=== PATIENT | female | born 1990 | race African-American/Black ===

== ENCOUNTER 2021-05-29 12:40 | Emergency (ER) | payer SELFPAY ==
[~2021-05-29] VITALS: Ht 162.6 cm; Wt 70.8 kg
--- NOTE | 2021-05-29 12:40 | NUR ---
SEEN AND EXMAINED BY . NARCAN 2MG IVP GIVEN.
--- NOTE | 2021-05-29 12:40 | NUR ---
PT [id number] [address] FOUND UNRESPONSIVE W/ SHALLOW BREATHING. POSSIBLE OD ON UNKNOWN DRUG PER EMS. PT IS AAOX3, NOT IN RESPIRATORY DISTRESS, HOOKED TO DOCTOR OF CHIROPRACTIC, KEPT RESTED AND COMFORTABLE. WILL CONTINUE TO MONITOR.
[2021-05-29] MEDS ORDERED: OLANZAPINE 10 MG VIAL IM ONE ×2 (12:53→13:00)
[2021-05-29] MEDS ORDERED: NALOXONE HCL 0.4 MG/ML AMPUL IV ONE (13:00)
--- NOTE | 2021-05-29 13:16 | NUR ---
LABS DRAWN AT BEDSIDE
[2021-05-29 13:20] LABS: EOSINOPHILS % (AUTO) 0.3 % (0.0-6.0); HEMOGLOBIN 12.7 g/dL (11.5-14.8)
[2021-05-29 13:24] LABS: BASOPHILS % (AUTO) 0.4 % (0.0-2.0); HEMATOCRIT 38 % (33-45); LYMPHOCYTES # (AUTO) 1.9 K/uL (0.8-4.8); LYMPHOCYTES % (AUTO) 18.5 % (20.0-44.0); MEAN CORPUSCULAR HGB CONC 34 g/dl (31.0-36.0); MEAN CORPUSCULAR VOLUME 102 fL (82-100); MONOCYTES # (AUTO) 0.5 K/uL (0.1-1.30); MONOCYTES % (AUTO) 4.5 % (2.0-12.0); NEUTROPHILS # (AUTO) 7.9 K/uL (1.8-8.9); NEUTROPHILS % (AUTO) 76.3 % (43.0-81.0); PLATELET COUNT (AUTO) 382 K/uL (150-450); RED BLOOD CELL COUNT(AUTO) 3.66 MIL/uL (4.0-5.2); WHITE BLOOD COUNT (AUTO) 10.3 K/uL (4.3-11.0)
[2021-05-29 13:29] LABS: BILIRUBIN,URINE Negative (NEGATIVE); COLOR,URINE LIGHT YELLOW (YELLOW); LEUKOCYTE ESTERASE ,URINE Small (NEGATIVE); NITRITE, URINE Negative (NEGATIVE); PROTEIN,URINE Negative (NEGATIVE); UGLUCOSE Negative (NEGATIVE); UROBILINOGEN,URINE 0.2 EU/dL (0.2)
[2021-05-29 13:40] LABS: BACTERIA,URINE Few /HPF (None Seen); SQUAMOUS EPITHELIAL CELL,UR Few /HPF (None Seen)
[2021-05-29 13:41] LABS: CALCIUM, SERUM 7.8 mg/dL (8.5-10.1); CARBON DIOXIDE 21 mmol/L (21-32); CHLORIDE 106 mmol/L (98-107); CREATININE 0.6 mg/dL (0.6-1.3); GLUCOSE 92 mg/dL (74-106); POTASSIUM 3.4 mmol/L (3.5-5.1); SODIUM SERUM 140 mmol/L (136-145); UREA NITROGEN, BLOOD 10 mg/dL (7-18)
--- NOTE | 2021-05-29 13:44 | NUR ---
US TECH AT PT'S BEDSIDE
[2021-05-29 13:52] LABS: ALANINE AMINOTRANSFERASE 36 U/L (12-78); ALBUMIN 3.3 g/dL (3.4-5.0); ALCOHOL, BLOOD 280 mg/dL (0-0); ALKALINE PHOSPHATASE 91 U/L (46-116); ASPARTATE AMINOTRANSFERASE 29 U/L (15-37); BILIRUBIN,DIRECT 0.1 mg/dL (0.0-0.2); BILIRUBIN,TOTAL 0.1 mg/dL (0.2-1.0)
[2021-05-29 13:54] LABS: ACETAMINOPHEN < 0 ug/ml (10-30)
--- NOTE | 2021-05-29 22:10 | NUR ---
PT SLEEPING IN BED; IN NO ACUTE DISTRESS AT THIS TIME. RESPONSIVE TO NAME. RESP EVEN AND NON LABORED ON R/A SATTING AT 98%
--- NOTE | 2021-05-29 22:40 | NUR ---
PT A, OX4. AMBULATORY W/ STEADY GAITLS.. PO INTAKE TOLERATED WELL. REPORTED FEELING WELL AND WILLING TO LEAVE. AWARE. CLEAR FOR D/C
[2021-05-29] MEDS ORDERED: NALO4SPR NS (22:54)
--- NOTE | 2021-05-29 23:04 | NUR ---
Patient discharged to home in stable condition. Written and verbal after care instructions given. Patient verbalizes understanding of instruction.
[2021-05-30 02:41] VITALS: BP 111/68
== END 2021-05-29 23:10 | disposition home or self-care (01) ==
LOC: ER 12:51
DX: O26.891 Other specified pregnancy related conditions, first trimester (principal); F10.129 Alcohol abuse with intoxication, unspecified; Y90.9 Presence of alcohol in blood, level not specified; Z3A.09 9 weeks gestation of pregnancy
CPT/HCPCS: 36415; 76805; 80048; 80076; 80143; 80307; 80320; 81001; 84702; 84703; 85025; 87077; 87086; 96374; 96375; 99284; J3490; G0480